=== PATIENT | female | born 2000 | race Caucasian/White ===

== ENCOUNTER 2018-12-19 09:01 | Emergency (ER) | payer OTHER ==
[~2018-12-19] VITALS: Ht 167.6 cm; Wt 63.6 kg
[2018-12-19 09:09] VITALS: BP 125/62; TEMP 97.9
[2018-12-19] MEDS ORDERED: SINGULAIR 110 MG/TAB PO (09:16)
[2018-12-19] MEDS ORDERED: RT ADVAIR 228 DISKUS IH (09:16)
[2018-12-19] MEDS ORDERED: NORGESTIMATE AN1 TAB PO (09:17)
[2018-12-19] MEDS ORDERED: ZYRTEC 10MG10 MG PO (09:17)
[2018-12-19] MEDS ORDERED: PROAIR HFA0.09 MG/AC IH (09:18)
[2018-12-19 10:00] VITALS: PULSE 85
== END 2018-12-19 10:00 | disposition home or self-care (01) ==
LOC: COL.ER 09:01
DX: S93.401A Sprain of unspecified ligament of right ankle, initial encounter (principal); W00.0XXA Fall on same level due to ice and snow, initial encounter

== ENCOUNTER → 2020-07-16 | Outpatient (CLI) | payer OTHER ==
[~2020-07-16] MED LIST: NORGESTIMATE AN1 TAB PO; PROAIR HFA0.09 MG/AC IH; RT ADVAIR 228 DISKUS IH; SINGULAIR 110 MG/TAB PO; ZYRTEC 10MG10 MG PO
== END ==
LOC: ZCOL.LAB 15:42
DX: U07.1 COVID-19 (principal)

== ENCOUNTER 2021-01-08 20:28 | Emergency (ER) | payer SELFPAY ==
[~2021-01-08] VITALS: Ht 167.6 cm; Wt 72.7 kg
[2021-01-08 20:32] VITALS: TEMP 98.9
[2021-01-08] MEDS ORDERED: EPIPEN 2-PAK1 MG/ML IM (21:17)
[2021-01-08 21:27] VITALS: BP 129/83; PULSE 90
== END 2021-01-08 21:28 | disposition home or self-care (01) ==
LOC: COL.ER 20:28
DX: T78.1XXA Other adverse food reactions, not elsewhere classified, initial encounter (principal)
CPT/HCPCS: J7512